=== PATIENT | female | born 1950 | race Caucasian/White ===

== ENCOUNTER 2021-02-24 17:25 | Emergency (ER) | payer MEDICARE, OTHER, SELFPAY ==
[2021-02-24 17:27] VITALS: BP 201/112; PULSE 116; RESP 20; TEMP 36.2; O2SAT 99; BMI 25.7
--- NOTE | 2021-02-24 17:39 | EKG12_ITS ---
Test Reason : Blood Pressure : / mmHG Vent. Rate : 083 BPM Atrial Rate : 083 BPM P-R Int : 132 ms QRS Dur : 086 ms QT Int : 366 ms P-R-T Axes : 052 -36 061 degrees QTc Int : 430 ms Normal sinus rhythm Left axis deviation Left ventricular hypertrophy Inferior infarct , age undetermined Abnormal ECG Confirmed by JOEL POTTS, MARY ANN ([id number]), photo editor FLORECITA SCHAEFER ([id number]) on 02/27/2021 8:56:00 AM Referred By: MEENU Confirmed By:MARC MALDONADO MD
--- NOTE | 2021-02-24 17:39 | CT_ITS ---
STUDY: CT BRAIN WITHOUT CONTRAST REASON FOR EXAM: Female, 71 years old. DIZZY, hypertension RADIATION DOSAGE (If Supplied By Facility): CTDIvol = ( 44.99 ) mGy, DLP = ( 812.98 ) mGycm TECHNIQUE: Transaxial CT imaging of the brain was performed without administration of intravenous contrast material. Individualized dose optimization techniques were used for this CT. COMPARISON: No relevant priors. FINDINGS: Normal soft tissue structures. Normal calvarium. Normal size ventricles and extra-axial spaces for the patient''s age. Normal white matter tracts of the cerebral hemispheres. Normal basal ganglia and thalami. Normal brainstem. Normal cerebellum. There is no intracranial hemorrhage. There are no findings of an acute ischemic infarction. Normal visualized paranasal sinuses. CT/Brain/Head without Contrast IMPRESSION: No acute intracranial hemorrhage or mass effect. Electronically Signed: Pablo Brock MD (Brooks) at 18:24 EDT , Service support ,
--- NOTE | 2021-02-24 17:41 | ED.VIS.GEN ---
History of Present Illness Chief Complaint: Hypertension Narrative: Patient presents with hypertension. She has not seen a primary care physician in about three or 4 years, she has noticed over the past few weeks that her head felt funny but she did not have a headache she has no vertigo or dizziness. She has no nausea or vomiting she has no vision changes. She is denying chest pain or shortness of breath. She went to an urgent care since last night she tried her son's blood pressure cuff and it read elevated. She had sent to the emergency department for hypertension. Past medical history: She has no prior medical history. Medications: She does not take any medications Social history: Noncontributory Review of systems: All systems negative except as indicated General: No fever Eyes: No visual changes ENT: No upper airway congestion, normal voice Neck: No neck pain Cardiovascular: No chest pain Respiratory: No shortness of breath or cough Gastrointestinal: No abdominal pain, nausea vomiting or diarrhea Genitourinary: No dysuria Musculoskeletal: Denies myalgias no difficulty with ambulation Skin: No rash Neurological: No memory loss, confusion or any focal weakness Psych: No recent behavioral changes Hematologic: No easy bleeding or easy bruising Physical exam General: Well nourished, Well developed, No Acute Distress Head: Normocephalic, Atraumatic Eyes: Conjunctiva not pale ENT: Moist mucous membranes Neck: Supple, Nontender, No lymphadenopathy Cardiovascular: Regular rate, Regular rhythm Respiratory: No distress, CTA bilaterally Abdomen: Soft, Nontender, Nondistended Back: Nontender, Normal Inspection. Negative for: CVA tenderness Extremities: Nontender, No edema Skin: Normal color, No rash Neurological: Alert, Normal Strength, Normal Sensation. Normal cerebellar. Normal Romberg. Normal gait. Psychological: Normal affect Past Medical History - Allergies and Home Meds Allergies/Adverse Reactions: Allergies No Known Allergies Allergy (Verified 02/24/21 17:27) Primary Care Physician: Jitendra Lafleur MD [NON-STAFF] - Physical Exam Vital Signs/Narrative: Vital Signs Temp Pulse Resp BP Pulse Ox 02/24/21 17:27 97.2 F L 116 H 20 H 201/112 H 99 Diagnostic/Tx/Re-eval - Medical Decision Making She has an unremarkable ED work-up, diastolic is below 100, systolic is 205. I gave her oral antihypertensives. I will treat her with antihypertensives for home. She has very mild renal insufficiency I will refer her to a PCP she is told to follow-up otherwise she will be discharged in stable condition. She is asymptomatic. ED Disposition - Plan for ED Patient: Disposition: Home or Assisted Living Instructions: ED High Blood Pressure ..., ED Hypertension, New (Begin Treatment) Prescriptions: Lisinopril/Hydrochlorothiazide [Lisinopril-Hctz 20-12.5 mg Tab] 1 each PO DAILY #30 tablet Transmission Status: Pending to [facility]/pharmacy #[id number] Referrals: Ulises Han MD [NON-STAFF] - 2 Days
[2021-02-24 17:43] VITALS: BP 205/94; PULSE 102; RESP 16; O2SAT 99
[2021-02-24] MEDS: Lisinopril 20 MG Tablet PO (18:03)
[2021-02-24] MEDS: hydroCHLOROthiazide 12.5mg 12.5 MG PO (18:03)
[2021-02-24 18:06] LABS: Hematocrit 39.4 % (37-47); Hemoglobin 13.2 g/dL (12.0-15.0); Mean Corp Hgb Conc 33.5 g/dL (32-36); Mean Corpuscular Volume 92.5 fL (81-99); Mean Platelet Vol. 9.4 fl (6.2-12.0); Platelet Count 265 K/mm3 (150-450); RBC Distribution Width SD 40.9 fl (35.1-43.9); Red Blood Count 4.26 M/mm3 (4.2-5.4); White Blood Count 7.4 K/mm3 (4.4-11.0)
[2021-02-24 18:25] LABS: ALB/GLOB Ratio 0.9 RATIO (0.9-2.4); AST(SGOT) 13 U/L (15-37); Alanine Aminotransfer ALT/SGPT 22 U/L (13-56); Albumin, Serum 3.9 g/dL (3.2-5.0); Alkaline Phosphatase 68 U/L (45-117); Anion Gap 7 (5-15); BUN 19 mg/dL (7-18); BUN/Creat Ratio 14.5 RATIO (10-20); Calcium,Total 9.4 mg/dL (8.5-10.1); Chloride 104 mmol/L (98-107); Creatinine, Serum 1.31 mg/dL (0.55-1.02); EST Glomerular Filtration Rate 42 mL/min (>60); Est Glom Filt Rate - Afr Amer 51 mL/min (>60); Estimated Creatinine Clearance 31.64 ml/min; Globulin 4.4 g/dL (2.2-4.2); Glucose 181 mg/dL (74-106); Potassium 3.9 mmol/L (3.5-5.1); Protein, Total 8.3 g/dL (6.4-8.2); Sodium Level 137 mmol/L (136-145)
[2021-02-24 18:59] VITALS: BP 202/81; PULSE 80; RESP 16; O2SAT 99
== END 2021-02-24 19:04 | disposition home or self-care (01) ==
PROVIDERS: Emergency Provider Emergency Medicine
DX: I10 Essential (primary) hypertension (principal); N28.9 Disorder of kidney and ureter, unspecified
CPT/HCPCS: 70450; 80053; 84484; 85027; 93005; 99285; A4216

== ENCOUNTER 2023-04-17 14:12 | Emergency (ER) | payer MEDICARE, OTHER, SELFPAY ==
[2023-04-17 14:12] VITALS: BP 191/68; PULSE 107; RESP 14; TEMP 36.2; O2SAT 97; BMI 26.4
--- NOTE | 2023-04-17 14:23 | EKG12_ITS ---
Test Reason : DIZZINESS Blood Pressure : / mmHG Vent. Rate : 073 BPM Atrial Rate : 073 BPM P-R Int : 150 ms QRS Dur : 096 ms QT Int : 434 ms P-R-T Axes : 051 -37 069 degrees QTc Int : 478 ms Normal sinus rhythm Left axis deviation Moderate voltage criteria for LVH, may be normal variant ( R in aVL , Dimitri product ) Inferior infarct , age undetermined Abnormal ECG Confirmed by PEÑA POTTS, EVANGELIST ([id number]), photograph editor FLORECITA SCHAEFER ([id number]) on 04/21/2023 1:29:18 PM Referred By: Confirmed By:EVANGELIST POMPA MD
--- NOTE | 2023-04-17 14:23 | EX.ED.DYSGE1 ---
HPI History of Present Illness Chief Complaint: Dizziness Detail of Chief Complaint: Lightheadedness and abnormal labs Informant: patient Narrative Narrative: Patient presents the emergency department with complaint of feeling lightheaded. Patient states symptoms started about 3 days ago. Patient states about 5 days ago she had an episode that had some severe dizziness and spinning type sensation that lasted a few minutes and then resolved. Patient talked to her primary care physician about this and he sent her for lab work 2 days ago. Today she was called and was told that her kidney function levels were elevated and needed to come to the ER to get evaluated. Patient denies any recent illness. She denies vomiting or diarrhea. She has been drinking normally. Denies urinary symptoms. She denies chest pain or shortness of breath. [facility] Medical History (Updated 04/17/23 @ 15:[address] Aisha Alvarez, ) Diabetes High cholesterol HTN (hypertension) Hyperkalemia Home Medications lisinopril 20 mg-hydrochlorothiazide 12.5 mg tablet 1 each PO DAILY #30 tabs 02/24/21 [Rx Last Taken Unknown] Allergy/AdvReac Type Severity Reaction Status Date / Time No Known Allergies Allergy Verified 02/24/21 17:27 Social History Smoking Status: Former smoker ROS ROS ED ROS Narrative Lightheadedness, abnormal labs Review of Systems ROS Unobtainable: other Constitutional Constitutional ED: Reports lethargy; Denies chills, fever(s), sweats or weight loss Eyes Eyes: Denies blurry vision, change in vision or diplopia ENT ENT ED: Denies rhinorrhea or sore throat Cardiovascular Cardiovascular: Denies chest pain, orthopnea or racing heartbeat Respiratory/Chest Respiratory/Chest: Denies cough, dyspnea, dyspnea on exertion, orthopnea or sputum Gastrointestinal Gastrointestinal: Denies abdominal pain, diarrhea, nausea or vomiting Genitourinary Genitourinary ED: Denies dysuria, hematuria or urinary frequency Musculoskeletal Musculoskeletal: Denies arthralgias, back pain, myalgias or neck pain Integumentary Denies abscess, Abrasions or rash Neurologic Neurologic: Denies headache(s) or weakness Psychiatric Psychiatric: Denies anxiety, depression or suicidal thoughts Endocrine Endocrinology: Denies polydipsia, polyphagia or polyuria Hematologic/Lymphatic Hematologic/Lymphatic: Denies easy bleeding, easy bruising or lymphadenopathy Allergic/Immunologic Allergic/Immunologic ED: Denies mouth swelling, tongue swelling or urticaria EXAM Physical Exam Const Vital Signs: 04/17/23 14:12 04/17/23 14:23 04/17/23 14:48 Temperature 97.1 F L Temperature Source Temporal Pulse Rate 107 H Pulse Rate [Lying] 68 Pulse Rate [Sitting (for 1 minute prior to obtaining)] 80 Pulse Rate [Standing (for 1 minute prior to obtaining)] 89 Respiratory Rate 14 Respiratory Effort Normal Respiratory Pattern Normal Blood Pressure 191/68 H Blood Pressure [Lying] 151/61 H Blood Pressure [Sitting (for 1 minute prior to obtaining)] 157/72 H Blood Pressure [Standing (for 1 minute prior to obtaining)] 164/68 H Blood Pressure Mean 109 Blood Pressure Mean [Lying] 91 Blood Pressure Mean [Sitting (for 1 minute prior to obtaining)] 100 Blood Pressure Mean [Standing (for 1 minute prior to obtaining)] 100 Pulse Ox 97 Oxygen Delivery Method Room Air Positive well nourished and well developed General Appearance ED: well developed and NAD HEENT Reports TM's clear and moist mucous membranes normocephalic and atraumatic; Negative for trauma or tenderness Tympanic Membrane ED: Yes TM's clear Eyes PERRL and EOMs intact bilaterally General Eye ED: Negative for pale conjunctiva or scleral icterus Neck no lymphadenopathy, supple and no JVD General: Negative for tenderness Chest Wall inspection of chest normal and palpation of chest normal Chest: Negative for tenderness Resp normal respiratory effort and clear to auscultation bilaterally Effort and Inspection: Negative for respiratory distress or pain with movement Auscultation: Negative for rhonchi, wheezes or diminished lung sounds Cardio regular rhythm, S1 normal heart sound, S2 normal heart sound and no murmurs Rate: tachycardic Peripheral Pulses: pulses 2+ throughout GI normal to inspection, nondistended, normoactive bowel sounds, soft to palpation, non-tender, non-distended and no masses Back/Spine no CVA tenderness and no thoracic nor lumbar tenderness Extremity normal to inspection General Extremety ED: Negative for edema General Extremity: Negative for edema Neuro oriented x3, CN's II-XII intact bilaterally, no sensory deficits noted and gait normal Sensorium / Orientation: awake, alert, oriented to person, oriented to place and oriented to time Motor Exam: strength 5/5 throughout and strength abnormal Psych mental status grossly normal Skin no rashes or lesions noted and no wounds MDM MDM MDM Narrative Medical decision making narrative: Presents with abnormal labs and complaint of some faint lightheadedness. Patient with symptoms for about 3 days. She was advised to come to the emergency department to get evaluated. CBC with differential obtained showed a white count of 8.8 with a hemoglobin 11 and hematocrit of 33 and platelet count of 210. Chemistries unremarkable other than a slightly depressed potassium of 3.1. Patient BUN was 48 and creatinine 2.96. When compared with prior creatinine from 2020 at that time her creatinine was 1.3. Urinalysis was unremarkable. We did do a bladder scan and she only had about 5 mL of urine in the bladder. I did discuss case with urology on-call Dr. Villanueva who felt patient could follow-up with his office as an outpatient I think this is reasonable as patient otherwise clinically looks well it is unclear how quickly her creatinine is elevated. Lab Data Attestation: I reviewed the patient's lab results. Labs: Laboratory Results - last 24 hr 04/17/23 04/17/23 04/17/23 14:29 14:29 14:38 WBC 8.8 RBC 3.64 L Hgb 11.4 L Hct 33.1 L MCV 90.9 MCH 31.3 MCHC 34.4 RDW Std Deviation 41.2 RDW Coeff of Antonietta 12.5 Plt Count 210 MPV 10.0 Sodium 138 Potassium 3.1 L Chloride 104 Carbon Dioxide 23.0 Anion Gap 11 BUN 48 H Creatinine 2.96 H Estim Creat Clear Calc 12.99 Est GFR (MDRD) Af Amer 20 L Est GFR (MDRD) Non-Af 16 L BUN/Creatinine Ratio 16.2 Glucose 162 H Calcium 9.6 Troponin I High Sens 11 Urine Color Yellow Urine Clarity Sl. Cloudy Urine pH 6.0 Ur Specific [place] 1.010 Urine Protein 100 H Urine Glucose (UA) Normal Urine Ketones Negative Urine Occult Blood 50 H Urine Nitrite Negative Urine Bilirubin Negative Urine Urobilinogen Normal Ur Leukocyte Esterase Negative Urine RBC 0-5 SEEN Urine WBC 0 SEEN Ur Squamous Epith Cells 0-5 SEEN Urine Bacteria 1+ Urine Mucus 0 SEEN EKG Initial EKG: Attestation: I personally reviewed and interpreted this EKG as follows: Comments: Sinus rhythm with a rate of 73 bpm with LVH and old inferior infarct Discharge Plan Triage Chief Complaint: Dizziness Other Complaint: Abn Labs ED Provider: Aisha Alvarez Dx/Rx/DC Orders Clinical Impression: Acute renal insufficiency Instructions: ED Chronic Kidney Disease (CKD), ED Dizziness, Uncertain Cause, ED Renal Insufficiency Prescriptions: No Action lisinopril-hydrochlorothiazide 1 EACH tablet 1 each PO DAILY Qty: 30 0RF Primary Care Provider: Chet Ross Referrals: Jennifer Villanueva MD [Med Staff - Consulting] - 3-5 Days Care Physician,No Primary [Non-Staff] - Disposition Disposition: Home, Self Care
[2023-04-17 14:40] LABS: Hematocrit 33.1 % (37-47); Hemoglobin 11.4 g/dL (12.0-15.0); Mean Corp Hgb Conc 34.4 g/dL (32-36); Mean Corpuscular Hgb 31.3 pg (27.0-32.0); Mean Corpuscular Volume 90.9 fL (81-99); Platelet Count 210 K/mm3 (150-450); RBC Distribution Width CV 12.5 % (11.6-14.6); RBC Distribution Width SD 41.2 fl (35.1-43.9); Red Blood Count 3.64 M/mm3 (4.2-5.4); White Blood Count 8.8 K/mm3 (4.4-11.0)
[2023-04-17 14:41] LABS: Mucous, Urine 0 SEEN /hpf (<or=2+); White Blood Cells 0 SEEN /hpf (0-5)
[2023-04-17 14:48] VITALS: BP 151/61; BP 157/72; BP 164/68; PULSE 68; PULSE 80; PULSE 89
[2023-04-17 14:49] LABS: Color, Urine Yellow (Yellow); Glucose, Dipstick Normal (Normal); Ketone-Dipstick Negative (Negative); Leukocyte Esterase-Dipstick Negative /ul (Negative); Nitrite-Dipstick Negative (Negative); Occult Blood-Urine 50 /ul (Negative); Protein-Dipstick 100 mg/dl (Negative); Urine Bilirubin Dipstick Negative (Negative); Urine Clarity Sl. Cloudy (Clear); Urine Urobilinogen Normal (Normal)
[2023-04-17] MEDS: 0.9% Normal Saline 1,000 ML 150 ML IV (14:53)
[2023-04-17 14:55] LABS: Bacteria 1+ /hpf (None Seen); Red Blood Cells-Urine 0-5 SEEN /hpf (0-5); Squamous Epithelial Cells - UA 0-5 SEEN /hpf (5-10)
[2023-04-17 15:04] LABS: Anion Gap 11 (5-15); BUN 48 mg/dL (7-18); BUN/Creat Ratio 16.2 RATIO (10-20); Calcium,Total 9.6 mg/dL (8.5-10.1); Chloride 104 mmol/L (98-107); Creatinine, Serum 2.96 mg/dL (0.55-1.02); EST Glomerular Filtration Rate 16 mL/min (>60); Est Glom Filt Rate - Afr Amer 20 mL/min (>60); Estimated Creatinine Clearance 12.99 ml/min; Glucose 162 mg/dL (74-106); Potassium 3.1 mmol/L (3.5-5.1); Sodium Level 138 mmol/L (136-145); Troponin-I HS 11 pg/mL (3.0-54.0)
[2023-04-17 15:56] VITALS: BP 130/58; PULSE 61; RESP 18; O2SAT 98
== END 2023-04-17 16:01 | disposition home or self-care (01) ==
PROVIDERS: Emergency Provider Emergency Medicine; PCP Student in an Organized Health Care Education/Training Program; Visit Provider Emergency Medicine
DX: N28.9 Disorder of kidney and ureter, unspecified (principal); R42 Dizziness and giddiness; Z87.891 Personal history of nicotine dependence
CPT/HCPCS: 80048; 81001; 84484; 85027; 93005; 96360; 99285; J7030; A4216

== ENCOUNTER → 2024-04-13 | Outpatient (CLI) | payer MEDICARE, OTHER, SELFPAY ==
--- NOTE | 2024-04-13 10:44 | RAD_ITS ---
INDICATION: MGUS, R/O LYTIC LESIONS EXAMINATION/TECHNIQUE: X-RAY - XR Bone Survey Complete : 22 images COMPARISON: None. FINDINGS: SOFT TISSUES:No focal soft tissue edema. No subcutaneous emphysema. No radiopaque foreign body. No airspace consolidation effusion or pneumothorax. Nonobstructive bowel gas pattern. Thoracic and abdominal aortic and peripheral atherosclerosis. BONES/JOINTS: 7 mm round lucent lesion at the left parietal calvarium, image 2. Moderate diffuse cervical and thoracolumbar spondylosis. RAD/Bone Survey Comp(Axial&Append) IMPRESSION: Solitary 7 mm round lucent lesion suspected in the left parietal calvarium. Continued radiographic follow-up is recommended. Electronically Signed: Zeke Gordon MD at 23:32 EDT ,
== END | disposition home or self-care (01) ==
LOC: RAD 10:40
PROVIDERS: PCP Student in an Organized Health Care Education/Training Program; Referring Provider Internal Medicine Hematology & Oncology; Visit Provider Internal Medicine Hematology & Oncology
DX: D47.2 Monoclonal gammopathy (principal)
CPT/HCPCS: 77075

== ENCOUNTER → 2025-03-23 | Outpatient (CLI) | payer MEDICARE, OTHER, SELFPAY ==
--- NOTE | 2025-03-23 09:13 | RAD_ITS ---
PROCEDURE: BONE SURVEY COMP(AXIAL APPEND) 03/23/2025 REASON FOR EXAM: MGUS, R/O MYELOMA L PARIETAL LESION F, age 75 y/o . TECHNIQUE: Axial and long bone survey of the skeleton was obtained. COMPARISON: Prior study dated April 13, 2024. FINDINGS: Stable 7 mm well-defined rounded lucent lesion in the left parietal portion of the skull. Origins of thoracic and lumbar spines. RAD/Bone Survey Comp(Axial&Append) IMPRESSION: Stable examination. Recommend follow-up as clinically warranted. Reading Location: [id number]
[2025-03-23 09:14] LABS: Absolute Lymphocyte Count 2.54 X10^3/uL (0.83-4.51); Absolute Neutrophil Count 4.9 X10^3/uL (2.0-7.7); Basophil# 0.09 X10^3/uL; Eosinophil# 0.17 X10^3/uL; Hematocrit 32.7 % (37-47); Hemoglobin 11.1 g/dL (12.0-15.0); Lymphocyte # 2.54 X10^3/ul (0.83-4.51); Lymphocyte % 29.6 % (19-41); Mean Corp Hgb Conc 33.9 g/dL (32-36); Mean Corpuscular Hgb 30.9 pg (27.0-32.0); Mean Corpuscular Volume 91.1 fL (81-99); Mean Platelet Vol. 9.4 fl (6.2-12.0); Monocyte# 0.86 X10^3/uL; NRBC Flagged by Analyzer 0 % (0-5); Neutrophil # 4.89 X10^3/uL (2.7-7.7); Neutrophil % 57.1 % (47-70); Platelet Count 198 K/mm3 (150-450); RBC Distribution Width CV 12.6 % (11.6-14.6); RBC Distribution Width SD 41.7 fl (35.1-43.9); Red Blood Count 3.59 M/mm3 (4.2-5.4); White Blood Count 8.6 K/mm3 (4.4-11.0)
[2025-03-23 10:25] LABS: ALB/GLOB Ratio 1.2 RATIO (0.9-2.4); AST(SGOT) 25 U/L (<=31); Alanine Aminotransfer ALT/SGPT 13 U/L (<=34); Albumin, Serum 4.4 g/dL (3.4-4.8); Alkaline Phosphatase 47 U/L (35-104); Anion Gap 14 (5-15); BUN 42 mg/dL (4-19); BUN/Creat Ratio 21.2 RATIO (10-20); Calcium,Total 10.1 mg/dL (7.6-11.0); Carbon Dioxide 21.3 mmol/L (21.0-32.0); Chloride 103 mmol/L (98-108); Creatinine, Serum 1.96 mg/dL (0.70-1.20); EST Glomerular Filtration Rate 26 (>60); Globulin 3.6 g/dL (2.2-4.2); Glucose 143 mg/dL (70-99); Potassium 4.5 mmol/L (3.3-5.1); Protein, Total 7.9 g/dL (5.9-8.4); Sodium Level 138 mmol/L (133-145); Total Bilirubin 0.38 mg/dL (0.00-1.30)
[2025-03-28 12:08] LABS: Albumin 3.7 g/dL (2.9-4.4); Alpha-1-Globulins 0.2 g/dL (0.0-0.4); Alpha-2-Globulins 0.9 g/dL (0.4-1.0); Free Kappa Light Chains 44.3 mg/L (3.3-19.4); Free Lambda Light Chains 33.9 mg/L (5.7-26.3); Gamma Globulin 1.3 g/dL (0.4-1.8); Immunoglobulin A 387 mg/dL (64-422); Immunoglobulin G 1295 mg/dL (586-1602); Immunoglobulin M 135 mg/dL (26-217); PROEL- TOTAL PROTEIN 7.4 g/dL (6.0-8.5)
== END | disposition home or self-care (01) ==
LOC: RAD 08:59
PROVIDERS: PCP Student in an Organized Health Care Education/Training Program; Referring Provider Internal Medicine Hematology & Oncology; Visit Provider Internal Medicine Hematology & Oncology
DX: D47.2 Monoclonal gammopathy (principal)
CPT/HCPCS: 36415; 77075; 80053; 82784; 83883; 84165; 85025; 86334

== ENCOUNTER → 2025-05-10 | Outpatient (CLI) | payer MEDICARE, OTHER, SELFPAY ==
--- NOTE | 2025-05-10 11:42 | BI_ITS ---
EXAM: SCRN MAMM (CAD)W/MAKAYLA BILAT DATE: 05/10/2025 CLINICAL HISTORY: F, Age 75 y/o , ANNUAL SCREENING TECHNIQUE: SCRN MAMM (CAD)W/MAKAYLA BILAT COMPARISON: Prior exam(s) dated 12/12/2022, 11/13/2021. FINDINGS: TISSUE DENSITY: There are scattered areas of fibroglandular density. Bilateral Breast Mammographic Findings: No significant masses, calcifications or other abnormalities are identified. BI/SCRN MAMM (CAD)W/MAKAYLA BILAT IMPRESSION: There is no mammographic evidence of malignancy. OVERALL FINAL ASSESSMENT BI-RADS 1: NEGATIVE. RECOMMEND ANNUAL MAMMOGRAPHIC SCREENING. RECOMMENDATION: Routine annual follow-up in 1 Year A letter with findings and recommendations will be mailed to the patient. Reading Location: [id number]
--- NOTE | 2025-05-10 13:04 | CT_ITS ---
PROCEDURE: LOW DOSE CT LUNG SCREENING 05/10/2025 REASON FOR EXAM: LUNG CANCER SCREENING 1 pack per day smoker day times 50 years, quit 4 years ago TECHNIQUE: LOW DOSE CT LUNG SCREENING Coronal and Sagittal reconstruction series were provided. One or more dose reduction techniques were used (e.g., Automated exposure control, adjustment of the mA and/or kV according to patient size, use of iterative reconstruction technique). REFERENCE LINK: [facility] Lung-RADS RADIATION DOSE SUMMARY: CTDlvol: 2.01 mGy DLP: 65.95 mGycm COMPARISON: No prior studies FINDINGS: Lung windows show underlying emphysema with nonspecific pleural thickening in both hemithoraces, and in both apices. Honeycombing noted around the periphery of both lung castro along with evidence of chronic bronchitis and multiple calcified granulomata. There is no organized infiltrate effusion or suspicious noncalcified mass or nodule. Limited soft tissue windows show a normal-appearing thyroid gland. No suspicious adenopathy. Peripheral calcifications in the thoracic aorta without aneurysm. There are calcified coronary vessels. Bony structures show degenerative change. Limited cuts through the upper abdomen show stable hiatal hernia. CT/Low Dose CT Lung Screening IMPRESSION: Underlying emphysema without a superimposed acute pulmonary process or suspicio us noncalcified mass or nodule. Coronary artery calcification (CAC) is is present Lung-RADS Category: 2 BENIGN (BASED ON IMAGING FEATURES OR INDOLENT BEHAVIOR). RECOMMEND 12-MONTH SCREENING LDCT. Other Significant Findings: No interval change Reading Location: [id number]
== END | disposition home or self-care (01) ==
PROVIDERS: PCP Student in an Organized Health Care Education/Training Program; Referring Provider Internal Medicine Hematology & Oncology; Visit Provider Internal Medicine Hematology & Oncology
DX: Z12.31 Encounter for screening mammogram for malignant neoplasm of breast (principal); Z12.2 Encounter for screening for malignant neoplasm of respiratory organs; Z87.891 Personal history of nicotine dependence
CPT/HCPCS: 71271; 77063; 77067